=== PATIENT | male | born 1960 | race Caucasian/White ===

== ENCOUNTER 2020-03-22 09:33 | Outpatient (CLI) | payer BC, SELFPAY ==
[2020-03-22 09:58] LABS: Basophils Absolute Auto 0.1 K/mm3 (0.0-0.1); Basophils Percent Auto 1.2 % (0.2-1.2); Eosinophils Absolute Auto 0.7 K/mm3 (0-0.3); Eosinophils Percent Auto 9.4 % (0-4.4); Hematocrit 48.4 % (42.0-52.0); Hemoglobin 16.3 g/dL (14.0-18.0); Immature Granulocyte Absolute 0.03 K/mm3 (0.00-0.031); Immature Granulocyte Percent A 0.4 % (0-0.5); Lymphocytes Absolute Auto 3.03 K/mm3 (0.9-3.2); Lymphocytes Percent Auto 41.9 % (18.3-44.2); Mean Corpuscular HGB Conc 33.7 g/dl (32-36); Mean Corpuscular Hemoglobin 30.1 pg (26-34); Mean Corpuscular Volume 89.5 fl (80-100); Mean Platelet Volume 9.4 fl (7.4-10.4); Monocytes Absolute Auto 0.5 K/mm3 (0.1-0.6); Monocytes Percent Auto 7.5 % (2.6-8.5); Neutrophils Absolute Auto 2.9 K/mm3 (1.3-6.7); Neutrophils Percent Auto 39.6 % (45.5-73.1); Platelet Count Result 333 k/mm3 (150-375); Red Blood Count 5.41 M/mm3 (4.6-6.20); White Blood Count 7.2 K/mm3 (4.5-10.0)
[2020-03-22 10:41] LABS: Alanine Aminotransferase 47 U/L (4-50); Albumin Level 4.5 g/dL (3.5-5.1); Alkaline Phosphatase 62 U/L (38-126); Anion Gap 10 mmol/L (8-16); Aspartate Amino Transferase 34 U/L (17-59); Bilirubin,Total 0.7 mg/dL (0.2-1.3); Blood Urea Nitrogen 25 mg/dL (9-20); Calcium 9.5 mg/dL (8.4-10.2); Carbon Dioxide 27 mmol/L (22-30); Chloride 106 mmol/L (98-107); Cholesterol 246 mg/dL (0-200); Estimated Glomerular Filt Rate > 60; Glucose 107 mg/dL (75-110); HDL Direct 39 mg/dL; Potassium 4.1 mmol/L (3.4-5.0); Sodium 143 mmol/L (137-145); Triglycerides 167 mg/dL (<150)
[2020-03-22 10:52] LABS: LDL Cholesterol Direct 160 mg/dL
[2020-03-22 13:15] LABS: Prostate Specific Antigen 0.5 ng/mL (< OR = 4.0)
== END 2020-03-22 09:34 | disposition home or self-care (01) ==
PROVIDERS: PCP Family Medicine; Visit Provider Physician Assistant Medical
DX: Z79.899 Other long term (current) drug therapy (principal); I10 Essential (primary) hypertension; Z12.5 Encounter for screening for malignant neoplasm of prostate
CPT/HCPCS: 36415; 80053; 80061; 84153; 85025; G0103

== ENCOUNTER 2020-05-13 06:55 | Outpatient (NON) | payer BC, SELFPAY ==
[2020-05-13 20:58] LABS: SARS-CoV-2 RNA PCR Negative
== END 2020-05-13 06:56 ==
LOC: ANHCOVIDDT 06:58
PROVIDERS: PCP Family Medicine; Visit Provider Family Medicine
DX: Z20.828 Contact with and (suspected) exposure to other viral communicable diseases (principal); R09.89 Other specified symptoms and signs involving the circulatory and respiratory systems
CPT/HCPCS: 87635; C9803; U0003

== ENCOUNTER 2020-07-02 10:49 | Outpatient (CLI) | payer BC, SELFPAY ==
--- NOTE | ~2020-07-02 | XR_ITS ---
EXAMINATION: XR foot RT min 3V EXAM DATE: 07/02/2020 11:22 INDICATION: S93.504A - Unspecified sprain of right lesser toe(s), initial encounter. TECHNIQUE: Right foot dorsoplantar, lateral and oblique projections obtained and reviewed. There is no prior study for comparison. FINDINGS: Right metatarsal bones unremarkable. Small posterior and inferior calcaneal spurs. There are no bony erosions identified. No more than minimal osteoarthritis. There are no acute fractures or dislocations identified. There is no subcutaneous gas. The soft tissue is unremarkable. There ar e no radiopaque foreign bodies. IMPRESSION: No acute osseous findings. Reviewed, dictated and finalized at location B. PACKER IMPRESSION: No acute osseous findings.
[2020-07-02 11:40] LABS: Uric Acid 8.1 mg/dL (3.5-8.5)
== END 2020-07-02 10:50 | disposition home or self-care (01) ==
LOC: ANHLAB 10:51
PROVIDERS: PCP Family Medicine; Visit Provider Family Medicine
DX: S93.504A Unspecified sprain of right lesser toe(s), initial encounter (principal); X58.XXXA Exposure to other specified factors, initial encounter
CPT/HCPCS: 36415; 73630; 84550

== ENCOUNTER 2020-10-02 08:14 | Outpatient (CLI) | payer BC, SELFPAY ==
[2020-10-02 08:57] LABS: Cholesterol 193 mg/dL (0-200); HDL Direct 39 mg/dL; Triglycerides 132 mg/dL (<150)
[2020-10-02 09:00] LABS: Alanine Aminotransferase 29 U/L (4-50); Albumin Level 4.5 g/dL (3.5-5.1); Alkaline Phosphatase 70 U/L (38-126); Anion Gap 7 mmol/L (8-16); Aspartate Amino Transferase 27 U/L (17-59); Bilirubin,Total 0.7 mg/dL (0.2-1.3); Blood Urea Nitrogen 20 mg/dL (9-20); Calcium 9.2 mg/dL (8.4-10.2); Carbon Dioxide 26 mmol/L (22-30); Chloride 109 mmol/L (98-107); Estimated Glomerular Filt Rate > 60; Glucose 108 mg/dL (75-110); Potassium 4.1 mmol/L (3.4-5.0); Sodium 142 mmol/L (137-145); Uric Acid 7.8 mg/dL (3.5-8.5)
[2020-10-02 09:08] LABS: LDL Cholesterol Direct 122 mg/dL
== END 2020-10-02 08:15 | disposition home or self-care (01) ==
PROVIDERS: Physician Assistant Medical; PCP Family Medicine; Visit Provider Family Medicine
DX: E79.0 Hyperuricemia without signs of inflammatory arthritis and tophaceous disease (principal); E78.2 Mixed hyperlipidemia
CPT/HCPCS: 36415; 80053; 80061; 84550

== ENCOUNTER 2021-10-24 19:23 | Emergency (ER) | payer BC, SELFPAY ==
--- NOTE | ~2021-10-24 | CT_ITS ---
EXAMINATION: CT abdomen pelvis wo con DATE: 10/24/2021 21:57 INDICATION: Right flank pain. TECHNIQUE: Computed tomography (CT) of the abdomen and pelvis was performed without intravenous contr ast. Automated exposure control and iterative reconstruction technique were employed. The dose-length product was 785.73 mGy-cm. COMPARISON: CT abdomen and pelvis 06/21/2019 FINDINGS: The visualized portions of the lung bases demonstrate mild bronchiectasis. No pleural effus ion. The heart size is normal. No pericardial effusion. There is a 13 mm cyst in the liver. Calcifica tions in the spleen are consistent with old granulomatous disease. The pancreas and adrenal glands ar e normal. There are 2 stones in right kidney with the larger measuring 4 mm. There is mild right hydr onephrosis and hydroureter. There is a 5 mm stone in distal right ureter. There are 3 stones in left kidney measuring up to 3 mm. There are no dilated loops of bowel. There are bilateral inguinal hernia s containing fat. There is diverticulosis of the colon without evidence of diverticulitis. The append ix is normal. There is an umbilical hernia containing fat. There are no pathologically enlarged lymph nodes. There is no free intraperitoneal fluid. There is mild thoracolumbar spondylosis. IMPRESSION: 1. 5 mm stone in distal right ureter with mild right hydronephrosis and hydroureter. 2. Bilateral nonobstructing kidney stones. Reviewed, dictated and finalized at location A. IMPRESSION: 1. 5 mm stone in distal right ureter with mild right hydronephrosis and hydrour eter. 2. Bilateral nonobstructing kidney stones.
[2021-10-24 20:03] VITALS: BP 154/92; PULSE 80; RESP 16; TEMP 36.6; O2SAT 99
[2021-10-24 20:15] LABS: Appearance Urine Clear (Clear); Bilirubin Urine Negative (Negative); Blood Urine 2+ (Negative); Color Urine Yellow (Yellow); Glucose Urine UA Negative (Negative); Ketones Urine Negative (Negative); Leukocyte Esterase Ur Negative LEU/UL (Negative); Nitrate Urine Negative (Negative); Protein Urine Negative (Negative); Urobilinogen Urine 0.2 mg/dL (<2.0)
[2021-10-24 20:46] LABS: Mucus Urine Rare /lpf; Squamous Epithelial Cell Urine Rare /hpf (Few); WBC Urine 0-3 /hpf
[2021-10-24 20:50] LABS: Add Urine Microscopic? YES
[2021-10-24 21:14] LABS: Basophils Absolute Auto 0.1 K/mm3 (0.0-0.1); Basophils Percent Auto 0.8 % (0.2-1.2); Eosinophils Absolute Auto 0.4 K/mm3 (0-0.3); Eosinophils Percent Auto 3.9 % (0-4.4); Hematocrit 46.9 % (42.0-52.0); Hemoglobin 15.1 g/dL (14.0-18.0); Immature Granulocyte Absolute 0.03 K/mm3 (0.00-0.031); Immature Granulocyte Percent A 0.3 % (0-0.5); Lymphocytes Absolute Auto 3.42 K/mm3 (0.9-3.2); Lymphocytes Percent Auto 32.1 % (18.3-44.2); Mean Corpuscular HGB Conc 32.2 g/dl (32-36); Mean Corpuscular Hemoglobin 29.6 pg (26-34); Mean Platelet Volume 9.6 fl (7.4-10.4); Monocytes Percent Auto 9.3 % (2.6-8.5); Neutrophils Absolute Auto 5.7 K/mm3 (1.3-6.7); Neutrophils Percent Auto 53.6 % (45.5-73.1); Platelet Count Result 345 k/mm3 (150-375); White Blood Count 10.7 K/mm3 (4.5-10.0)
[2021-10-24 21:26] LABS: Alanine Aminotransferase 31 U/L (4-50); Albumin Level 4.6 g/dL (3.5-5.1); Alkaline Phosphatase 80 U/L (38-126); Anion Gap 8 mmol/L (8-16); Aspartate Amino Transferase 30 U/L (17-59); Bilirubin,Total 0.4 mg/dL (0.2-1.3); Blood Urea Nitrogen 25 mg/dL (9-20); Calcium 9.2 mg/dL (8.4-10.2); Carbon Dioxide 25 mmol/L (22-30); Chloride 107 mmol/L (98-107); Estimated CRCL calculation 74 ml/min; Estimated Glomerular Filt Rate > 60; Glucose 110 mg/dL (65-110); Potassium 3.8 mmol/L (3.4-5.0); Sodium 140 mmol/L (137-145)
[2021-10-24 21:46] VITALS: BP 148/105; PULSE 63; RESP 18; O2SAT 97
[2021-10-24] MEDS: HYDROcodone/acetaminophen (*CRX) 5-325 MG TABLET 1 TAB PO (22:04)
--- NOTE | 2021-10-24 22:42 | ED.GENADULT ---
HPI - General Adult General Chief complaint: Back Pain/Injury Stated complaint: R FLANK PAIN, HX STONES Time Seen by Provider: 10/24/21 21:26 History of Present Illness HPI narrative: Patient is a 61-year-old gentleman who presents the emergency department with chief complaint of flank pain. The patient reports he is not having pain in his right flank area reports that it feels similar to when recent kidney stones before in the past reports that it is improved somewhat upon arrival to the emergency department. Patient states has had a little bit of nausea with it but no vomiting. Patient denies fever or chills. Patient reports he has seen a urologist before in the past and reports that he has had to have lithotripsy and has had stents before in the past but is also been able to pass some stones. Related Data Allergies Allergy/AdvReac Type Severity Reaction Status Date / Time aspirin Allergy Unknown Swelling Verified 10/24/21 21:47 Review of Systems Review of Systems: A 10 system review of systems was completed on the patient and is negative except for what is stated in the HPI. Nursing and ancillary documentation was reviewed. 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 HEAD: Normocephalic, atraumatic. EYES: PERRLA and EOMI. ENT: Nares clear, no rhinorrhea or epistaxis. Mucous membranes moist. NECK: Supple. CHEST: Clear to auscultation. No respiratory distress. HEART: Regular rate and rhythm. No murmur heard. Normal peripheral pulses. ABDOMEN: Soft, nontender, nondistended, normal active bowel sounds. EXTREMITIES: Normal range of motion. No edema. SKIN: Warm, dry, no rash. NEURO: No focal deficits. Alert and oriented x3. PSYCH: Normal mood and affect. Course Course Emergency Course: CT scan of the abdomen pelvis showed evidence of 5 mm right-sided stone. Was given a prescription for [place] the [place] prescription monitoring program was reviewed prior to transmission Vital Signs Vital signs: Vital Signs Temperature 36.6 C 10/24/21 20:03 Pulse Rate 80 10/24/21 20:03 Respiratory Rate 16 10/24/21 20:03 Blood Pressure 154/92 H 10/24/21 20:03 Pulse Oximetry 99 10/24/21 20:03 Temperature 36.6 C 10/24/21 20:03 Pulse Rate 63 10/24/21 21:46 Respiratory Rate 18 10/24/21 21:46 Blood Pressure 148/105 H 10/24/21 21:46 Pulse Oximetry 97 10/24/21 21:46 Medical Decision Making Vital Signs Vital Signs: Vital Signs Temperature 36.6 C 10/24/21 20:03 Pulse Rate 80 10/24/21 20:03 Respiratory Rate 16 10/24/21 20:03 Blood Pressure 154/92 H 10/24/21 20:03 Pulse Oximetry 99 10/24/21 20:03 Temperature 36.6 C 10/24/21 20:03 Pulse Rate 63 10/24/21 21:46 Respiratory Rate 18 10/24/21 21:46 Blood
[2021-10-24 22:55] VITALS: BP 140/103; PULSE 65; RESP 18; O2SAT 98
== END 2021-10-24 22:55 | disposition home or self-care (01) ==
LOC: ANHED 22:03
PROVIDERS: Emergency Medicine; Emergency Provider Emergency Medicine; PCP Family Medicine
DX: N13.2 Hydronephrosis with renal and ureteral calculous obstruction (principal); Z85.820 Personal history of malignant melanoma of skin; Z87.442 Personal history of urinary calculi; Z85.828 Personal history of other malignant neoplasm of skin
CPT/HCPCS: 36415; 74176; 80053; 81001; 85025; 99284; A9270

== ENCOUNTER → 2021-10-30 14:50 | Outpatient (CLI) | payer BC, SELFPAY ==
--- NOTE | ~2021-10-30 | XR_ITS ---
XR abdomen/kub 1V 10/30/2021 15:08 Indication: Right ureteral stone Procedure: KUB Comparison: CT dated 10/24/2021 Findings: There is a right ureteral stone overlying the sacrum. There are punctate bilateral renal st ones. Bowel gas pattern is nonobstructive with moderate colonic fecal loading. There is osteoarthriti s of the hips, symmetric. Impression: 1: Distal right ureteral and bilateral renal stones. Reviewed, dictated and finalized at location A. Impression: 1: Distal right ureteral and bilateral renal stones.
== END ==
PROVIDERS: PCP Family Medicine; Visit Provider Urology
DX: N20.2 Calculus of kidney with calculus of ureter (principal)
CPT/HCPCS: 74018

== ENCOUNTER 2022-04-14 01:00 | Outpatient (NON) | payer BC, SELFPAY | END 2022-04-14 01:01 | disposition home or self-care (01) | LOC: ANHLAB 04-15 13:48 | PROVIDERS: PCP Family Medicine; Visit Provider Nurse Practitioner | DX: C44.519 Basal cell carcinoma of skin of other part of trunk (principal) | CPT/HCPCS: 88305 ==

== ENCOUNTER 2022-06-02 14:16 | Outpatient (NON) | payer BC, SELFPAY | END 2022-06-02 14:17 | disposition home or self-care (01) | LOC: ANHLAB 14:17 | PROVIDERS: PCP Family Medicine; Visit Provider Surgery Plastic and Reconstructive Surgery | DX: C44.91 Basal cell carcinoma of skin, unspecified (principal); D22.71 Melanocytic nevi of right lower limb, including hip | CPT/HCPCS: 88305; 88331 ==

== ENCOUNTER 2023-04-20 07:00 | Outpatient (NON) | payer OTHER, SELFPAY | END 2023-04-20 07:01 | disposition home or self-care (01) | LOC: ANHLAB 04-21 14:08 | PROVIDERS: PCP Family Medicine; Visit Provider Nurse Practitioner | DX: D48.5 Neoplasm of uncertain behavior of skin (principal) | CPT/HCPCS: 88305 ==

== ENCOUNTER 2023-08-09 12:32 | Outpatient (CLI) | payer OTHER, SELFPAY ==
[2023-08-09 13:25] LABS: Anion Gap 7 mmol/L (8-16); Blood Urea Nitrogen 20 mg/dL (9-20); Calcium 9.6 mg/dL (8.4-10.2); Carbon Dioxide 28 mmol/L (22-30); Chloride 105 mmol/L (98-107); Cholesterol 203 mg/dL (0-200); Estimated Glomerular Filt Rate > 60; Glucose 104 mg/dL (65-110); HDL Direct 39 mg/dL; Sodium 140 mmol/L (137-145); Triglycerides 120 mg/dL (<150); Uric Acid 9.4 mg/dL (3.5-8.5)
[2023-08-09 13:31] LABS: Potassium 3.9 mmol/L (3.4-5.0)
[2023-08-09 13:34] LABS: LDL Cholesterol Direct 138 mg/dL
[2023-08-09 13:50] LABS: Prostate Specific Antigen 0.8 ng/mL (< OR = 4.0)
== END 2023-08-09 12:33 | disposition home or self-care (01) ==
PROVIDERS: PCP Family Medicine; Visit Provider Nurse Practitioner Family
DX: E66.9 Obesity, unspecified (principal); I10 Essential (primary) hypertension; M10.9 Gout, unspecified; Z12.5 Encounter for screening for malignant neoplasm of prostate
CPT/HCPCS: 36415; 80048; 80061; 84153; 84550; G0103

== ENCOUNTER 2024-08-01 01:02 | Day surgery (SDC) | payer MEDICARE, OTHER, SELFPAY ==
[2024-07-18 10:11] VITALS: BMI 35.6
--- OUTSIDE RECORDS SUMMARY | 2024-08-01 01:04 | XMS_ITS | Continuity of Care Document ---
Author Organization [facility] Address [address] [place] [address] Phone Care Team Providers Care Netbackup Administrator Name Role Phone Reji Robertson MD Unavailable Unavailabl e Allergies, Adverse Reactions, Alerts Substance Reaction Status Criticality No Known Allergies Active No Inform ation Medications Medication Instructions Dosage Effective Dates (start - stop) Status Comments lisinopril 20 mg-hydrochlorothiazide 12.5 mg tablet - Active oseltamivir 75 mg capsule - Active Procedures Procedure Date Office/outpatient visit,[facility], [place] 2019 Manipulation Nieves Fascial Cord Post En zyme Inj Injection Enzyme Palmar Fascial Cord Jan Office/outpatient visit,[facility], [place] 2019 Office/outpatient visit,[facility] 2019 Advance Directives Directive Yes / No Effective Date File Name No Information Encounters Encounter Description Practice Location Reason(s) For Visit Diagnoses Date Provider Providers Copied on Encounter Office/outpat ient visit,[facility], [address] [place] [address], [id number], [place] tel:[phone] [facility] Left Hand (chief complaint) Palmar fascial fibromatosis [Dupuytren] Sep-0 0 Marcelo Mendoza. [address] [facility], [place] [address], [place], [place], [id number], [place]. tel:[phone] [facility], [address] [place] [address], [id number], tel:[phone] [facility] Left hand (chief complaint) Palmar fascial fibromatosis [Dupuytren] 0 Marcelo Mendoza. [address] [facility], [place] [address], [place], [place], [id number], . tel:[phone] Office/outpat ient visit,[facility], [address], [id number], tel:[phone] [facility] Left hand (chief complaint) Palmar fascial fibromatosis [Dupuytren] 0 Marcelo Mendoza. [address] [facility], [address], [id number], . tel:[phone] Office/outpat ient visit,[facility], [address], [id number], tel:[phone] [employer] Left hand (chief complaint) Palmar fascial fibromatosis [Dupuytren] 0 Marcelo Mendoza. [address] [facility], [address], [id number], . tel:[phone] Family History Family Member Type Diagnosis Age At Onset Brother Problem (finding) Kidney Disease Father Problem (finding) Cancer, unknown Father Problem (finding) Heart Disease Mother Problem (finding) Kidney Disease Payers Payer name Insurance type Covered alliance party ID Jolynn hoff(s) [facility] [id number] Social History Type Description Quantity Date Captured Comments Alcohol Use Details Unknown Caffeine Use Details Unknown Tobacco Use Status No Information Smoking Status Never smoker Non-Smoking Tobacco Use Details : No Details Available : No Details Available Sex Male Vital Signs Date / Time: Height Weight BMI Pulse Rate Blood Pressure Temperature Respiratory Rate Body Surface Area Head Circumference Head Circ. Percentile Wt./Rashad. Percentile BMI percentile Pulse Ox Inhaled Ox 10:53 AM 72.00 in 117.934 kg (260.00 lbs) 35.2 6 kg/m eter (2) Chief Complaint And Reason For Visit From encounter dated '02/22/2020 10:25'. Left Hand (chief complaint). 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 Hung was last seen in the office 2 weeks ago on February 06, 2020. At that time, I performed aclosed manipulation of the left ring finger. He had been given a Xiaflex injection the day before on February 05, 2020. We were able to achieve good extension of the left ring finger with the closed manipulation, and I referred Hung to hand therapy for an extension splint on February 06, 2020 after the closed manipulation. Hung has been using the splint over the past two weeks, and he has been working on range of motion exercises. Hung is doing extremely well with his left hand. He returnsfor followup today. Reason For Referral Reason For Referral No Information History Of Present Illness Encounter Date Complaint History Of Prese nt Illness Todd Hand Hung returns to the office today on February 22, 2020. 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 Hung was last seen in the office 2 weeks ago on February 06, 2020. At that time, I performed a closed manipulation of the left ring finger. He had been given a Xiaflex injection the day before on February 05, 2020. We were able to achieve good extension of the left ring finger with the closed manipulation, and I referred Hung to hand therapy for an extension splint on February 06, 2020 after the closed manipulation. Hung has been using the splint over the past two weeks, and he has been working on range of motion exercises. Hung is doing extremely well with his left hand. He returns for followup today. Todd hand Hung returns to the office today on February 06, 2020. 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 Hung was seen in the office yesterday on February 05, 2020, and he was given a Xiaflex injection at that time. He returns today for the closed manipulation of the left ring finger. Left hand Hung returns to the office today on February 05, 2020. 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 Hung was last seen in the office over 3 months ago on October 26, 2019. At that time, we discussed a Xiaflex injection. Hung decided to proceed with the Xiaflex. He is here today for the injection. Left hand Hung presents to the office today on October 26, 2019. He is here because of difficulty with function of the left hand. Hung does not recall any specific injury. He has noticed a thickening of the soft tissue in the palm of the left hand over the past 2 or 3 years. He notices a similar problem on the right side, but to a much lesser degree. Hung has minimal pain. He does not describe locking or triggering. However, he is not able to fully extend the left ring finger. He presents today for further evaluation and treatment of his left hand. Functional Status Date Functional Assessmen t No Information Instructions Date Instruction Additional Infor matodalys No Information Assessments Type Assessment Date assessment Palmar fascial fibromatosis [Dup uytren] impression I suggested that Nino blanco continue night-time use of the extension splint. However, he may discontinue the splint during the daytime. He may advance his activities as tolerated. He may follow up with me as needed. He may also call with any questions or concern. Patient Care Teams Name Effective Dates (start - stop) Status Members No Information
--- OUTSIDE RECORDS SUMMARY | 2024-08-01 01:05 | XMS_ITS | Encounter Summary ---
Author Organization [facility] Address [address] [place] [address] Care Team Providers Care Contract Accountant Name Role Phone Akira Leyva MD Primary Care Provider [phone] Brit Douglas [facility] Unavailable [phone] Akira Leyva MD Unavailable [phone] Reason for Visit * Reason Onset Date Comments Appointment 12/21/2023 Encounter Details Date Type Department Care Team (Late st Contact Info) Description 12/21/2023 Telephone [facility] - Ophthalmology [address] [place] [phone] Sarmad Nayak MD [address] [place] [address] [place] [address] Appointment Social History Tobacco Use Types Packs/Day Years Used Date Smoking Tobacco: Never Smokeless Tobacco: Never Alcohol Use Standard Drinks/Week Comments Yes 0 (1 standard drink = 0.6 oz pur e alcohol) socially AUDIT-C Answer Date Recorded Q1: How often do you have a drink containing alc ohol? Monthly or less 10/07/2023 Q2: How many drinks containi ng alcohol do you have on a typical day when you are drinking? 1 or 2 10/07/2023 Q3: How often do you have si x or more drinks on one occasion? Never 10/07/2023 Sex and Gender Information Value Date Recorded Sex Assigned at Not on file Gender Identity Not on file Sexual Orientation Not on file documented as of this encounter Miscellaneous Notes * Telephone Encounter - Herrera Giordano - 12/21/2023 10:19 AM CDT Pt spouse called today to reschedule canceled POST OP appointment from 12/10/23. Please assist and advise. documented in this encounter Plan of Treatment Not on file documented as of this encounter Visit Diagnoses Not on filedocumented in this encounter Care Teams Contract Accountant Relationship Specialty Start Date End Date Akira Leyva MD [address] [place] [phone] PCP - General 06/16/22 Brit Douglas, [employer] [address] [place] [address] PCP - Attributed-[facility] [place] 10/20/23 01/19/24 Akira Leyva MD [facility] [place] [address] PCP - Attributed-[facility] [place] 01/20/24 documented as of this encounter
--- OUTSIDE RECORDS SUMMARY | 2024-08-01 01:05 | XMS_ITS | Clinical Summary ---
Author Organization [facility] Address [address] [facility] [place] [address] Care Team Providers Care Mainstreaming Facilitator Name Role Phone Akira Leyva MD Primary Care Provider [phone] Akira Leyva MD Unavailable [phone] Source Comments [facility] [employer],non-owned Affiliates and Associated Physician Practices is amultiple site organization consisting of ambulatory clinics and hospital sitesin [place], [place], [place] and [place]. This disclosure is being madepursuant to the Care Everywhere program and may not contain all information available regarding this patient. Last updated 18.[facility] Allergies Active Allergy Reactions Criticality Noted Date Comments Aspirin Rash Medium 07/28/2023 Medications * Be aware that medications may not be up to date on this document. Alwaysverify current medications with the patient. Medication Sig Dispensed Refills Start Date End Date Status atorvastatin (Lipitor) 10 MG tablet Take 1 (one) tablet by mouth once daily 06/09/2023 Active allopurinol (Zyloprim) 300 MG tablet Take 1 (one) tablet by mouth once daily 08/11/2023 Active colchicine 0.6 MG tablet 10/07/2023 Active moxifloxacin (Vigamox) 0.5 % ophthalmic solution Every 2 hours on day of surgery, then 4 times daily starting the day after surgery in your left eye 10/18/2023 Active Additional Information Patient not taking.Reported on 12/28/2023 nepafenac (Nevanac) 0.1 % ophth suspension Every 2 hours on day of surgery, then 4 times daily starting the day after surgery in your left eye 10/18/2023 Active Additional Information Patient not taking.Reported on 12/28/2023 prednisoLONE acetate (Pred Forte) 1 % ophthalmic suspension Use in LEFT eye: 3 times daily for a week, 2 times daily for a week, 1 time daily for a week, then stop 5 mL 1 10/26/2023 Active Additional Information Patient not taking.Reported on 12/28/2023 lisinopril (Prinivil; Zestril) 20 MG tablet Take 1 (one) tablet by mouth once daily 12/20/2023 Active amoxicillin (Amoxil) 500 MG capsule 02/10/2024 Active Active Problems Problem Noted Date Diagnosed Date HTN (hypertension) 02/14/2024 Social History Tobacco Use Types Packs/Day Years [...] on file Sexual Orientation Not on file Last Filed Vital Signs Vital Sign Reading Time Taken Comments Blood Pressure 125/87 10/18/2023 8:25 AM CDT Pulse 62 10/18/2023 8:25 AM CDT Temperature 36.5 C (97.7 F) 10/18/2023 8:05 AM CDT Respiratory Rate 14 10/18/2023 8:25 AM CDT Oxygen Saturation 97% 10/18/2023 8:25 AM CDT Inhaled Oxygen Concentration - - Weight 123.8 kg (273 lb) 10/18/2023 6:15 AM CDT Height 185.4 cm (6' 1 ) 10/18/2023 6:15 AM CDT Body Mass Index 36.02 10/18/2023 6:15 AM CDT Plan of Treatment Health Maintenance Due Date Last Done Comments COLOGUARD (AGES 45-75) - COL ON CA SCREENING 1959 COLON MONITORING 1959 COLONOSCOPY - COLON CA SCREENING 1959 CT COLONOGRAPHY - COLON CA SCREENING 1959 Colorectal Cancer Screening 1959 FIT - COLON CA SCREENING 1959 FLEX SIG - COLON CA SCREENING 1959 HIV SCREENING 1974 HEPATITIS C SCREENING 08/04/1977 DTAP/TDAP/TD VACCINES (1 - Tdap) 1978 PNEUMOCOCCAL VACCINE 50+ (1 of 1 - PCV) 2009 ZOSTER VACCINE (1 of 2) 2009 SCREENING FOR DIABETES 10/08/2023 COVID-19 VACCINE (1 - 2023-2 5 season) 2024 INFLUENZA VACCINE (#1) 2024 DEPRESSION SCREENING 06/21/2024 Respiratory Syncytial Virus (RSV) Vaccine Pt: or over 60 yrs (1 - 1-dose 75+ series) 2034 HEPATITIS B VACCINE Aged Out No longe r eligible based on patient's age to complete this topic HIB VACCINE Aged Out No longer eligi ble based on patient's age to complete this topic HPV VACCINE Aged Out No longer eligi ble based on patient's age to complete this topic MENINGOCOCCAL (Group B) VACCINE Aged Out No longer eligible based on patient's age to complete this topic MENINGOCOCCAL VACCINE Aged Out No miguel a tali eligible based on patient's age to complete this topic PNEUMOCOCCAL VACCINE Aged Out No long er eligible based on patient's age to complete this topic Medical Devices Implanted Type Area Arts Education Teacher Device Identifier Shelf Expiration Date Model / Serial / Lot Clareon Uv Iol [id number] 17.5d Implanted:Qty: 1 on 10/07/2023 by Sarmad Nayak MD at [facility] Right: Eye [employer] 12/21/2026 [id number] 17.5D / [id number] / 00 [id number] 18.0d Implanted:Qty: 1 on 10/18/2023 by Sarmad Nayak MD at [facility] Left: Eye [employer] 01/11/2027 [id number] . 0 / [id number] / 00 Care Teams Mainstreaming Facilitator Relationship Specialty Start Date End Date Akira Leyva MD [address] [place] [phone] PCP - General 06/16/22 Akira Leyva MD [address] [place] [phone] PCP - Attributed-[facility] [place] 01/20/24
--- OUTSIDE RECORDS SUMMARY | 2024-08-01 01:05 | XMS_ITS | Referral Summary ---
Author Organization [facility] Address [address] [place] [address] Care Team Providers Care Cnp Name Role Phone Akira Leyva MD Primary Care Provider [phone] Akira Leyva MD Unavailable Source Comments [facility] [employer]non-owned Affiliates and Associated Physician Practices is amultiple site organization consisting of ambulatory clinics and hospital sitesin [place], [place], [place] and [place]. This disclosure is being madepursuant to the Care Everywhere program and may not contain all information available regarding this patient. Last updated 18.[facility] [employer] Allergies Active Allergy Reactions Criticality Noted Date [...] 10/18/2023 6:15 AM CDT Plan of Treatment Not on file Medical Devices Implanted Type Area Senior Accountant Cpa Device Identifier Shelf Expiration Date Model / Serial / Lot Sawyer Uv Iol [id number] 17.5d Implanted:Qty: 1 on 10/07/2023 by Sarmad Nayak MD at [facility] Right: Eye [employer] 12/21/2026 [id number] 17.5D / [id number] / 00 [id number] 18.0d Implanted:Qty: 1 on 10/18/2023 by Sarmad Nayak MD at [facility] Left: Eye [employer] 01/11/2027 [id number] . 0 / [id number] / 00 Care Teams Cnp Relationship Specialty Start Date End Date Akira Leyva MD [address] [place] [phone] PCP - General 06/16/22 Akira Leyva MD [facility] [place] [phone] PCP - Attributed[facility] [employer] [place] 01/20/24
--- OUTSIDE RECORDS SUMMARY | 2024-08-01 01:05 | XMS_ITS | Data Portability ---
Author Organization [place] - [facility] autoContract - [facility] [place] Address [address] [place] [address] Assessment No assessment recorded. Plan of Treatment Reminders Order Date Submit Date Provider Last Modified By Organization Details Last Modified Time Details Appointments None recorded. Lab influenza virus A + B + SARS-CoV-2 (COVID19) Ag panel, rapid IA, upper respiratory specimen 2023 024 [email or web address] [facility], [address], [place], [address], 4 17:19:48 influenza virus A + B and SARS CoV 2 (COVID-19) and RSV RNA panel, HERNANDO+probe, respiratory specimen 2023 024 [facility], [address] [place], [place] [address]y, [place] [address], [place], [address], 4 15:26:20 Referral None recorded. Procedures None recorded. Surgeries None recorded. Imaging None recorded. Medication Orders None recorded. Patient TargetsNo targets recorded. Patient InstructionsNo instructions recorded. Reason for Referral None Reported. Results Created Date Observation Date Name Description Value Unit Range Abnormal Flag Note LastModifiedBy Organization Detail LastModifiedTime 06/12/20 24 06/12/2024 influ lizbeth virus A + B + SARS- CoV-2 (COVI D19) Ag panel , rapid IA, upper respi rator y speci men Influenza A negati ve Not Available [facility] [address], [place], [address], 06/12/2024 17:05:10 06/12/20 24 06/12/2024 influ lizbeth virus A + B + SARS- CoV-2 (COVI D19) Ag panel , rapid IA, upper respi rator y speci men Influenza B negati ve Not Available [facility] [address], [place], [address], 06/12/2024 17:05:10 06/12/20 24 06/12/2024 influ lizbeth virus A + B + SARS- CoV-2 (COVI D19) Ag panel , rapid IA, upper respi rator y speci men COVID-19 negati ve Not Available [facility] [address], [place], [address], 06/12/2024 17:05:10 Result Notes None recorded. Medical Equipment None Reported. Allergies No known drug allergies Medications Not known to be on any medication Vitals Date Recorded Body height Body temperature Body mass index (BMI) Body weight Heart rate Oxygen saturation Oxygen saturation in Arterial blood by Pulse oximetry Systolic blood pressure Diastolic blood pressure Provider Name and Address Organization Details Last Updated DateTime 4 187.96 cm 98.2 [degF] 34.7 kg/m2 120211. 94 g 91 /min 96 % 96 % 110 mm[Hg] 70 mm[Hg] Napoleon Miranda [place] - [facility] 16:59:58 Social History None recorded. Functional Status None recorded. Mental Status None recorded. Family History Nothing Reported. Medical History No medical history recorded. Immunizations Vaccine Type Date Status Note Provider Nam e and Address Organization Details Recorded Time Influenza, MDCK, quadrivalent, PF 04/10/2022 completed Napoleon pete[place] - [facility] 06/12/2024 16:54:10 zoster recombinant 07/10/2020 completed [place] pete[place] [facility] 06/12/2024 16:54:10 zoster recombinant 10/09/2020 completed [place] pete[place] [facility] 06/12/2024 16:54:10 COVID-19, mRNA, LNP-S, PF, 30 mcg/0.3 mL dose 06/26/2021 completed Napoleon Rizoo null[place] [facility] 06/12/2024 16:54:10 COVID-19, mRNA, LNP-S, PF, 30 mcg/0.3 mL dose 08/15/2020 completed Napoleon Rizoo null[place] [facility] 06/12/2024 16:54:10 COVID-19, mRNA, LNP-S, PF, 30 mcg/0.3 mL dose 09/05/2020 completed Napoleon Rizoo [place] [facility] 06/12/2024 16:54:10 COVID-19, mRNA, LNP-S, bivalent, PF, 30 mcg/0.3 mL dose 04/10/2022 completed Napoleon Rizoo [place] [facility] 06/12/2024 16:54:10 Tdap 12/29/2021 completed Napoleon Rizoo [place] [facility] 06/12/2024 16:54:10 Influenza, split virus, quadrivalent, PF 06/26/2021 completed Napoleon Gordonllo [place] [facility] 06/12/2024 16:54:10 Influenza, split virus, quadrivalent, PF 04/23/2020 completed Napoleon Rizoo [place] [facility] 06/12/2024 16:54:10 Influenza, split virus, quadrivalent, PF 06/09/2023 completed Napoleon Starrjillo [place] [facility] 06/12/2024 16:54:10 Past Encounters Encounter ID Performer Location Encounter Start Date Encounter Closed Date Diagnosis/Indication Diagnosis SNOMED-CT Code Diagnosis ICD10 Code Diagnosis Note [id number] RICK Gifford PA-C [facility] [address] [place] [address] 06/12/2024 16:49:20 06/12/2024 17:22:31 Suspected COVID-19 886410174 Z03.818 Z20.9 - Rapid testing NEGATIVE Influenza- like symptoms 459098556 R68.89 - Discussed negative rapid antigen for influenza A and influenza B. Viral syndrome 348867277 B34.9 - Will follow up with results of respirator y panel- Rest and increase fluids- Advised to take ibuprofen 600mg Q6 hours w/food PRN pain- Advised to take tylenol 500 - 1000 mg Q 6 hours for breakthrou gh pain- Supportive management of symptoms - hot steam showers, salt water gargles, hot tea with honey- RTC for any concern- Discussed proper hand hygiene to decrease spread of germs Health Concerns Section Related Observation LastModified by Organization Detai ls LastModified Time None Recorded Concern Status LastModified by Organization Details LastModified Time None Recorded Advance Directives Directive None Recorded Payers Encounter Date Sequence Insurance Name Policy Number Policy Pemberton Covered Member ID Pemberton Member ID Guarantor Name 06/12/2024 1 [employer] - [employer] - [facility] - DOS ON OR AFTER 2023 - IFB (PPO) [id number] Hung Catherine [id number] Hung Catherine Notes Date Note Type Note Provider Name and Address Organization Details Recorded Time 06/12/2024 text/html 63 y/o M present s w/ body aches/ ANAYA onset this morning. Pt notes some fever. Used Tylenol with some relief. Pt has a hx of COVID, three prior episodes in the past. Denies chills. No complaints of cough, sore throat, fatigue, SOB, CP, difficulty breathing, AMS, N/V/D, and exposure to others who are sick. ALESIA MONTOYA PA-C [address], [address], [place], [address], [place] - [facility] 06/12/2024 17:20:27
--- OUTSIDE RECORDS SUMMARY | 2024-08-01 01:05 | XMS_ITS | Patient Health Summary ---
Author Organization [facility] Address [address] [place] [address] Care Team Providers Care Coding Technician Name Role Phone Akria Leyva MD Primary Care Provider [phone] Akira Leyva MD Unavailable [phone] Note from [facility],non-owned Affiliates and Associated Physician Practices is amultiple site organization consisting of ambulatory clinics and hospital sitesin [place], [place], [place] and [place]. This disclosure is being madepursuant to the Care Everywhere program and may not contain all information available regarding this patient. Last updated 18.[facility] Allergies * Aspirin(Rash) -Medium Criticality Medications * Be aware that medications may not be up to date on this document. Alwaysverify current medications with the patient. * atorvastatin (Lipitor) 10 MG tablet(Started 06/09/2023) Take 1 (one) tablet by mouth once daily * allopurinol (Zyloprim) 300 MG tablet(Started 08/11/2023) Take 1 (one) tablet by mouth once daily * colchicine 0.6 MG tablet(Started 10/07/2023) * moxifloxacin (Vigamox) 0.5 % ophthalmic solution(Started 10/18/2023) Every 2 hours on day of surgery, then 4 times daily starting the day after surgery in your left eye * nepafenac (Nevanac) 0.1 % ophth suspension(Started 10/18/2023) Every 2 hours on day of surgery, then 4 times daily starting the day after surgery in your left eye * prednisoLONE acetate (Pred Forte) 1 % ophthalmic suspension(Started 10/26/2023) Use in LEFT eye: 3 times daily for a week, 2 times daily for a week, 1 time daily for a week, then stop 1 refill by 10/25/2024 * lisinopril (Prinivil; Zestril) 20 MG tablet(Started 12/20/2023) Take 1 (one) tablet by mouth once daily * amoxicillin (Amoxil) 500 MG capsule(Started 02/10/2024) Active Problems Problem Noted Date Diagnosed Date [...] Mass Index 36.02 10/18/2023 6:15 AM CDT Medical Devices Implanted Type Area Hash Slinger Device Identifier Shelf Expiration Date Model / Serial / Lot Clareon Uv Iol [id number] 17.5d Implanted:Qty: 1 on 10/07/2023 by Sarmad Nayak MD at [facility] Right: Eye [employer] 12/21/2026 [id number] 17.5D / [id number] / 00 Xgehifp-Ov-Wfg 18.0d Implanted:Qty: 1 on 10/18/2023 by Sarmad Nayak MD at [facility] Left: Eye [employer] 01/11/2027 [id number] . 0 / [id number] / 00 Procedures * MN INTMD WND REPAIR FACE,FACIAL 2.5-5(Performed 02/15/2024) Performed for Basal cell carcinoma (BCC) of left side of nose * MN CHMSRG MOHS MG TQ H/N/H/F/G EA ADDL STAG(Performed 02/15/2024) Performed for Basal cell carcinoma (BCC) of left side of nose * MN CHMSRG MOHS MG TQ H/N/H/F/G 1ST STAG 5 BLOC(Performed 02/15/2024) Performed for Basal cell carcinoma (BCC) of left side of nose * MN TANGNTL BX SKIN SINGLE LES(Performed 12/28/2023) Performed for Neoplasm of uncertain behavior of skin * DERMATOPATHOLOGY(Performed 12/28/2023) Performed for Neoplasm of uncertain behavior of skin * MN REMV CATARACT EXTRACAP,INSERT LENS(Performed 10/18/2023) Performed for Combined forms of age-related cataract of both eyes * MN REMV CATARACT EXTRACAP,INSERT LENS(Performed 10/07/2023) Performed for Combined forms of age-related cataract of both eyes * CORNEAL TOPOGRAPHY UNI/BI(Performed 07/28/2023) Performed for Combined forms of age-related cataract of both eyes * IOL MASTER(Performed 07/28/2023) Performed for Combined forms of age-related cataract of both eyes * EYE EXAM(Performed 07/20/2023) * EYE EXAM(Performed 07/20/2023) Results * MN CHMSRG MOHS MG TQ H/N/H/F/G 1ST STAG 5 BLOC, MN CHMSRG MOHS MG TQ H/N/H/F/G EA ADDL STAG, MN INTMD WND REPAIR FACE,FACIAL 2.5-5 (02/15/2024 11:27 AM CDT) Narrative Zach Wayne MD - 02/15/2024 11:27 AM CDT Zach Wayne MD 02/15/2024 12:47 PM Mohs Micrographic Surgery Operative Note Procedure: Mohs micrographic surgery Date of service: 02/15/2024 Location: Left NLF Preop diagnosis: Basal cell carcinoma Postop diagnosis: Basal cell carcinoma Mohs AUC score: 8 Number of stages: 2 Preop size: 1.0x0.9 cm Postop size: 1.4x1.3 cm Depth of final defect: muscle Previous dermpath accession #: [id number] Repair type: intermediate Mohs accession #: [id number] Surgeon and Pathologist: Zach Wayne MD served as both surgeon and pathologist. No other physician was involved in the cancer removal or pathology interpretation. Assistants: ZAHIRA White Indications for Mohs Surgery Removal of the patient's tumor is complicated by the following clinical features: Clinical area critical for tissue conservation (Area H: central face, eyelids, eyebrows, nose, lips, chin, ear, periauricular, amish, genitalia, hands, feet, ankles, nail units and areola). Based on my medical judgement, Mohs surgery is the most appropriate treatment for this cancer compared to other treatments. I discussed alternative treatments to Mohs surgery and specifically discussed the risks and benefits of curettage, excision with permanent sections, and foregoing treatment. The rationale for Mohs was explained to the patient and consent was obtained. The risks, benefits and alternatives to therapy were discussed in detail. Specifically, the risks of infection, scarring, bleeding, prolonged wound healing, incomplete removal, allergy to anesthesia, nerve injury and recurrence were addressed. Prior to the procedure, the treatment site was clearly identified and confirmed by the patient. All components of [place] Protocol/PAUSE Rule completed. STAGE I: The patient was placed on the operating table. The cancer was identified and outlined. The entire surgical field was prepped with hibiclens. The surgical site was anesthetized using Lidocaine 1% with epinephrine 1:100,000 buffered with sodium bicarbonate 8.4% in a 1:10 ratio.The area of clinically apparent tumor was debulked with a 15 blade. The layer of tissue was then surgically excised using a #15 blade and was then transferred onto a specimen sheet maintaining the orientation of the specimen. Hemostasis was obtained using monopolar electrodesiccation. The wound site was then covered with a dressing while the tissue samples were processed for examination. The specimen was oriented, mapped and divided. Each section was then inked and processed in the Mohs lab using the Mohs protocol and submitted for frozen section. The histopathologic sections were reviewed by the surgeon in conjunction with the reference map. Total blocks: 1 Total slides: 3 Frozen sections were examined by the surgeon and revealed residual tumor. Tumor was indicated in red on the reference map. Cell morphology: N/A. No tumor seen at the margin. and basaloid nests with peripheral palisading and abundant mucin (nodular BCC) Pathological pattern: Basal cell carcinoma, nodular Depth of invasion: Dermis Scar tissue: Not Present Perineural invasion: Not Present Inflammation obscuring possible tumor presence: Not Present STAGE II: The patient was prepped in the same fashion as the first stage. Using a similar technique to that described above, a thin layer of tissue was removed from all areas where tumor was visible on the previous stage. The tissue was again oriented, mapped, dyed, and processed as above. Histopathologic sections were reviewed in conjunction with the reference map. Total blocks: 1 Total slides: 2 Frozen sections were examined by the surgeon and revealed: No additional tumor. Histology: No malignant cells seen in the sections examined. No additional histologic findings appreciated. [facility] CLIA # [id number] Mohs Investigative Assistant: Rima Stuart MD REPAIR: Purse string (intermediate) Primary Surgeon: Zach Wayne MD Line Runner: ZAHIRA White Repair Size: 4.3 cm Sutures: 4-0 monocryl The patient was returned to the operating table. The defect was identified. The entire surgical field was prepped with hibiclens. The surgical site was anesthetized using Lidocaine 1% with epinephrine 1:100,000 buffered with sodium bicarbonate 8.4% in a 1:10 ratio.The wound was cleaned and hemostasis was achieved with monopolar electrodesiccation. The wound was undermined and debeveled. space was closed with a buried vertical mattress suture. A running subcuticular suture was placed along the circumference of the wound, and cinched tightly to decrease the wound diameter. The defect, which was smaller in size following repair, was filled with petrolatum and left to heal fully by secondary intent. Patient was informed that additional refinement of the resulting surgical scar may be used as a second stage of this reconstruction. No postoperative medications were prescribed. The patient will follow up in 4 week(s) for a wound check. Dr. Wayne performed the entire surgery, and documentation used to initiate this operative report. I entered the information in our Epic DocFlowsheet with the information provided by Dr. Wayne on his handwritten, paper format, surgical worksheet, which was then used to initiate the create of this note. Dr. Wayne then reviewed and edited the note as needed to complete the note. Luna Florentino MA I have reviewed the note, edited it as necessary and performed the entire procedure. Zach Wayne MD Corrosion Control Specialist 02/15/2024 Zach Wayne MD PROCEDURE/MINOR SURG ICAL ORDERABLES * MN TANGNTL BX SKIN SINGLE LES (12/28/2023 1:44 PM CDT) Narrative Farheen Galindo MD - 12/28/2023 1:44 PM CDT Latonia Walters MD 12/28/2023 1:44 PM Risks, benefits and alternatives to shave biopsy were discussed with the patient. Verbal consent was obtained. Location: left NLF Skin prep: Alcohol Anesthesia: 1% lidocaine with epinephrine Hemostasis: Aluminum chloride, monopolar electrodessication Dressing and wound care discussed. Specimen(s) placed in a patient labeled container and sent to dermatopathology. Patient agrees to phone call for results and message if not available. Latonia Walters MD [facility] Dermatology Resident, PGY4 Farheen Galindo MD PROCEDURE/MINOR SURG ICAL ORDERABLES * DERMATOPATHOLOGY (12/28/2023 12:00 AM CDT) Case Report Dermatopathology Report Case: [id number] Authorizing Provider: Farheen Galindo MD Collected: 12/28/2023 12:00 AM Ordering Location: [facility] - Received: 12/29/2023 07:30 AM Dermatology Pathologist: Fabiola Galindo MD Specimen: Skin, left NLF 4 3:14 PM CDT DERMATOPATHOLOGY LABORATORY Final Diagnosis Specimen A. SKIN, left NLF: BASAL CELL CARCINOMA, NODULAR TYPE (C44.311) 4 3:14 PM CDT DERMATOPATHOLOGY LABORATORY Clinical History BCC vs LPLK vs other 4 3:14 PM CDT DERMATOPATHOLOGY LABORATORY Gross Description Specimen A: Received is one formalin filled container labeled with the patient's name and designated left NLF. The specimen consists of a shave biopsy measuring 5x5x2 mm. Jar 0. 4 3:14 PM [facility] DERMATOPATHOLOGY LABORATORY Microscopic Description Specimen A. SKIN, left NLF: Within the dermis there are aggregates of basaloid cells with a high nuclear to cytoplasmic ratio and peripheral palisading. 4 3:14 PM [facility] DERMATOPATHOLOGY LABORATORY Disclaimer An external and internal positive and negative controls are appropriate for the histochemical, immunohistochemical and immunofluorescence stain(s) in this case (if any), except where stated explicitly. The performance characteristics of the stain(s) cited in this report were developed and its performance characteristic determined by the Dermatopathology Laboratory at [facility], directed by Dr. Ashley Nova. These tests need not be, and therefore are not, approved by the [place] Food and Drug Administration. The tests are used for clinical purposes. Billing Codes Specimen Charges Stain Charges 76839 1 4 3:14 PM T DERMATOPATHOLOGY LABORATORY Embedded Images 4 3:14 PM T DERMATOPATHOLOGY LABORATORY Pathology/Cytolog y TISSUE SPECIMEN FROM SKIN / Unknown 12/28/2023 12/29/2023 7:30 AM CDT Farheen Galindo MD LAB - PATHOLOGY/CYTO LOGY ORDERABLES DERMATOPATHOLOGY LABORATORY [facility] Department of Dermatology [address] [phone] * CORNEAL TOPOGRAPHY UNI/BI (07/28/2023 11:49 AM RECOVERY ADVOCATE) Anatomical Region Laterality Modality Head External-Camera Photography Narrative 07/30/2023 4:20 AM RECOVERY ADVOCATE Pentacam: Tomographic evaluation of both corneas was performed and reviewed using Pentacam. Sarmad Nayak MD OPHTHALMOLOGY SCHED ORD W PACS * IOL MASTER (07/28/2023 11:49 AM RECOVERY ADVOCATE) Anatomical Region Laterality Modality External-Camera Photography Narrative 07/30/2023 11:44 AM RECOVERY ADVOCATE IOL Master: Biometry was performed and reviewed for IOL power calculation using IOL Master for lens selection during surgery. Sarmad Nayak MD OPHTHALMOLOGY SCHED ORD W PACS * EYE EXAM (07/20/2023) Anatomical Region Laterality Modality Other Narrative 07/20/2023 Ordered by an unspecified provider. Scanned Document SCANNING ONLY * EYE EXAM (07/20/2023) Anatomical Region Laterality Modality Other Narrative 07/20/2023 Ordered by an unspecified provider. Scanned Document SCANNING ONLY Care Teams Coding Technician Relationship Specialty Start Date End Date Akira Leyva MD [facility] [place] [phone] PCP - General 06/16/22 Akira Leyva MD [facility] [place] [phone] PCP - Attributed-[employer] [place] 01/20/24
--- NOTE | 2024-08-01 08:13 | WPDANESEPPF ---
Anes - Initial Pre Proc Eval Procedure: Operation Date: 08/01/24 10:00 Proposed Procedures p Colonoscopy - Juan Carlos Jolley MD Date/Time: 08/01/24 08:13 Surgeon: Juan Carlos Jolley MD Pre Op Diagnosis: Family history of cancer Patient Data Age: 63 Gender: M Height: 1.85 m Weight: 122.74 kg Allergies Allergy/AdvReac Type Severity Reaction Status Date / Time aspirin Allergy Unknown Swelling Verified 08/01/24 08:47 hydrochlorothiazide AdvReac gout Verified 08/01/24 08:47 Home Medications ?Medication ?Instructions ?Recorded ?Confirmed ?Type tadalafil 20 mg tablet (Cialis) 20 mg PO DAILY PRN sexual activity 12/31/21 07/18/24 Rx #24 tabs atorvastatin 10 mg tablet See Rx Instructions .Route 05/25/23 08/01/24 Rx .COMPLEX #90 tabs lisinopril 30 mg tablet 30 mg PO DAILY #90 tabs 02/24/24 08/01/24 Rx allopurinol 300 mg tablet 300 mg PO DAILY #90 tabs 03/06/24 08/01/24 Rx Patient hx anesthesia problems: none Family hx anesthesia problems: none Results Review: All pre-operative results and documents have been reviewed as part of the pre-operative evaluation. 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 Bronchitis Kidney stones Surgical History Surgical History Hx of cataract surgery History of lithotripsy History of extraction of renal calculus History of vasectomy (~03/15/09) History of colonoscopy (~02/26/16) internal hemorrhoids, diverticulosis repeat in 5 year, Dr Webber H/O left knee surgery Family History Family History Father , age 55 Hypertension Heart disease Colon cancer Mother , in her 30s Hypertension Lupus Arthritis Social History Social History Smoking status: Never smoker Alcohol intake: never Drinks per week: 2 Substance use: never Substance use type: does not use Lack of Transportation: No Lack of Food: Never True Current Housing: I Have Housing Concerned About Future Housing: No Difficulty Paying Gas/Electric Bills: No Difficulty Paying for Meds: No Currently Unemployed: No Education: Bachelor's Degree Difficulty w/ Childcare or Family Care: No Living arrangements: with family Spiritual care concerns: No Anes - Eval Final PreProcedure Day of Procedure 08/01/24 08:13 Patient weight: obese Heart: regular rate and rhythm Lungs: clear to auscultation Airway: Mallampati scale class II Neurological: alert and oriented Last oral intake: >/= 8 hours ASA classification: III Emergent: no Anesthetic plan: proceed Anesthesia type and monitoring: general GIVS Results Review: All pre-operative results and documents have been reviewed as part of the pre-operative evaluation. Informed Consent: The patient's anesthetic plan and its attendant risks and benefits were discussed with the patient/family/POA. Questions were solicited and answers provided to the satisfaction of the patient/family/POA.
[2024-08-01 08:49] VITALS: BP 141/92; PULSE 77; RESP 18; TEMP 36.4; O2SAT 98
[2024-08-01] MEDS: LACTATED RINGERS 1,000 ML 150 ML IV CONT (08:57)
--- NOTE | 2024-08-01 09:20 | PM.HPGS ---
History of Present Illness History of Present Illness Consent: Risks, benefits, and alternatives have been discussed and questions answered. Patient agrees to proceed with procedure. 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 Skin cancer screening History of chicken pox History of mumps History of measles 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 Bronchitis Kidney stones Surgical History Surgical History Hx of cataract surgery History of lithotripsy History of extraction of renal calculus History of vasectomy (~03/15/09) History of colonoscopy (~02/26/16) internal hemorrhoids, diverticulosis repeat in 5 year, Dr Webber H/O left knee surgery Family History Family History Father , age 55 Hypertension Heart disease Colon cancer Mother , in her 30s Hypertension Lupus Arthritis Social History Social History Smoking status: Never smoker Alcohol intake: never Drinks per week: 2 Substance use: never Substance use type: does not use Lack of Transportation: No Lack of Food: Never True Current Housing: I Have Housing Concerned About Future Housing: No Difficulty Paying Gas/Electric Bills: No Difficulty Paying for Meds: No Currently Unemployed: No Education: Bachelor's Degree Difficulty w/ Childcare or Family Care: No Living arrangements: with family Spiritual care concerns: No Meds Home Medications and Allergies Home Medications ?Medication ?Instructions ?Recorded ?Confirmed ?Type tadalafil 20 mg tablet (Cialis) 20 mg PO DAILY PRN sexual activity 12/31/21 07/18/24 Rx #24 tabs atorvastatin 10 mg tablet See Rx Instructions .Route 05/25/23 08/01/24 Rx .COMPLEX #90 tabs lisinopril 30 mg tablet 30 mg PO DAILY #90 tabs 02/24/24 08/01/24 Rx allopurinol 300 mg tablet 300 mg PO DAILY #90 tabs 03/06/24 08/01/24 Rx Allergies Allergy/AdvReac Type Severity Reaction Status Date / Time aspirin Allergy Unknown Swelling Verified 08/01/24 08:47 hydrochlorothiazide AdvReac gout Verified 08/01/24 08:47 Vital Signs Vital Signs - 24 hr 08/01/24 08:49 Temperature 97.6 F Pulse Rate 77 Respiratory Rate 18 Blood Pressure 141/92 H Pulse Oximetry 98 Oxygen Delivery Room Air Exam Const: General: comfortable and no acute distress HENMT: Face/Nose/Sinus: Normal nares present Eyes: General: appearance normal, both eyes and all related structures Neck: Neck: no JVD Resp: Auscultation: clear to auscultation bilaterally Cardio: Rate: regular rate Rhythm: regular rhythm GI: Inspection: non-distended GI Palp: Yes Soft to palpation Skin: General skin exam: normal color Neuro: General: gait normal Speech: normal speech Extrem: General: normal to inspection Psych: Mental Status: mental status grossly normal Assessment and Plan Assessment and plan (1) Family history of colon cancer in father: Code(s): Z80.0 - Family history of malignant neoplasm of digestive organs Status: Acute Assessment and Plan: colonoscopy
[2024-08-01 09:45] VITALS: BP 126/88; PULSE 82; RESP 23; O2SAT 94
[2024-08-01 09:55] VITALS: BP 124/81; PULSE 78; RESP 22; O2SAT 94
[2024-08-01 10:05] VITALS: BP 127/83; PULSE 71; RESP 19; O2SAT 95
== END 2024-08-01 10:10 | disposition home or self-care (01) ==
PROVIDERS: PCP Family Medicine; Referring Provider Student in an Organized Health Care Education/Training Program; Visit Provider Internal Medicine Gastroenterology
PROC: 0DJD8ZZ Inspection of Lower Intestinal Tract, Via Natural or Artificial Opening Endoscopic (ICD-10-PCS; CPT 45378; principal; 2024-08-01 10:00)
DX: Z12.11 Encounter for screening for malignant neoplasm of colon (principal); K64.8 Other hemorrhoids; K57.30 Diverticulosis of large intestine without perforation or abscess without bleeding; E78.2 Mixed hyperlipidemia; I10 Essential (primary) hypertension; G47.30 Sleep apnea, unspecified; E66.9 Obesity, unspecified; Z68.36 Body mass index [BMI] 36.0-36.9, adult; Z98.890 Other specified postprocedural states; Z87.442 Personal history of urinary calculi; Z87.19 Personal history of other diseases of the digestive system; Z85.820 Personal history of malignant melanoma of skin; Z80.0 Family history of malignant neoplasm of digestive organs; Z82.49 Family history of ischemic heart disease and other diseases of the circulatory system
CPT/HCPCS: G0105; J2003; J2704; J7120

== ENCOUNTER 2024-08-21 09:39 | Outpatient (CLI) | payer MEDICARE, OTHER, SELFPAY ==
[2024-08-21 16:26] LABS: Alanine Aminotransferase 33 U/L (6-50); Albumin Level 4.2 g/dL (3.5-5.1); Alkaline Phosphatase 87 U/L (38-126); Anion Gap 10 mmol/L (4-12); Aspartate Amino Transferase 34 U/L (17-59); Bilirubin,Total 0.9 mg/dL (0.2-1.3); Blood Urea Nitrogen 22 mg/dL (9-20); Calcium 9.8 mg/dL (8.4-10.2); Carbon Dioxide 28 mmol/L (22-30); Chloride 105 mmol/L (98-107); Cholesterol 207 mg/dL (0-200); Estimated Glomerular Filt Rate > 60; Glucose 98 mg/dL (65-110); HDL Direct 37 mg/dL; Potassium 4.3 mmol/L (3.4-5.0); Sodium 143 mmol/L (137-145); Triglycerides 151 mg/dL (<150); Uric Acid 6.2 mg/dL (3.5-8.5)
[2024-08-21 16:37] LABS: LDL Cholesterol Direct 119 mg/dL
== END 2024-08-21 09:40 | disposition home or self-care (01) ==
LOC: ANHGOSHLAB 09:40
PROVIDERS: PCP Family Medicine; Visit Provider Family Medicine
DX: E78.2 Mixed hyperlipidemia (principal); M10.9 Gout, unspecified; N20.1 Calculus of ureter
CPT/HCPCS: 36415; 80053; 80061; 84550